=== PATIENT | male | born 1955 | race Caucasian/White ===

== ENCOUNTER → 2024-04-28 08:08 | Outpatient (REF) | payer MEDICARE, OTHER, SELFPAY ==
[2024-04-28 10:02] LABS: % Basophils 0.5 % (0-2); % Eosinophils 2.6 % (0-6); % Immature Granulocytes 0.9 % (0-0.5); % Lymphocytes 18.7 % (20.5-51.1); % Monocytes 11.4 % (1.7-9.3); % Neutrophils 65.9 % (42.2-75.2); Absolute Eosinophils 0.2 10^3/uL (0-0.7); Absolute Immature Granulocytes 0.1 10^3/uL (0-0.05); Absolute Lymphocytes 1.5 10^3/uL (1.2-3.4); Absolute Monocytes 0.9 10^3/uL (0.1-0.6); Absolute Neutrophils 5.1 10^3/uL (1.4-6.5); Hematocrit 41.6 % (39.0-52.0); Mean Corp Hgb Conc. 33.7 g/dL (33.0-37.0); Mean Corpuscular Hgb 29.1 pg (27.0-31.0); Mean Corpuscular Volume 86.5 fL (80.0-94.0); Mean Platelet Volume 9.9 fL (7.4-10.4); Nucleated Red Blood Cells % 0 % (-); Platelet Count 265 10^3/uL (130-400); Red Blood Cell Count 4.81 10^6/uL (4.70-6.10); Red Cell Dist. Width 13.1 % (11.5-14.5); White Blood Cell Count 7.7 10^3/uL (4.8-10.8)
[2024-04-28 12:29] LABS: Blood Urea Nitrogen 25 mg/dl (9-20); Calcium 9.4 mg/dl (8.4-10.2); Carbon Dioxide 30 mmol/L (22-30); Chloride 102 mmol/L (98-107); Glucose 99 mg/dl (70-99); Potassium 4.3 mmol/L (3.5-5.1); Sodium 142 mmol/L (135-145); eGFR > 60.00
== END ==
LOC: RCS 08:08
PROVIDERS: ATTENDING PHYSICIAN Orthopaedic Surgery Hand Surgery; FAMILY PHYSICIAN Family Medicine
DX: Z01.818 Encounter for other preprocedural examination (principal)
CPT/HCPCS: 36415; 80048; 85025; 93005

== ENCOUNTER 2024-07-22 13:43 | Emergency (ER) | payer MEDICARE, OTHER, SELFPAY ==
[2024-07-22 13:51] VITALS: BP 175/106
--- NOTE | 2024-07-22 13:53 | ED.MUSCINJ ---
HPI-Injury
General
Chief Complaint: Musculo-Skeletal Complaint
Source: patient
Exam Limitations: none
Time Seen by Provider: 07/22/24 17:53
History of Present Illness-Injury
Initial Injury comments:
68-year-old [id number] male presents complaining of right shoulder pain after slip and fall. He did not strike his head. He notes significant pain to the shoulder. No other complaints
ED Provider Triage
-
Patient seen by provider in Triage?: Seen in Triage
68-year-old [id number] male with right shoulder pain after slip and fall on ice. No blood thinners. No significant headache.
X-rays right shoulder ordered through triage
Patient seen by medical provider at triage warrants further assessment.
Past History
Past History
ED Past Medical History: Cancer (Prostate), Hypercholesterolemia and Other (Gout)
ED Past Surgical History: None and Urological
Social History
Tobacco: Non-smoker
Alcohol: None
Personal:
Living: with family
Phy Exam
Physical Exam
Physical Exam:
General: Well-appearing male no acute respiratory distress
Musculoskeletal the patient's right shoulder is diffusely tender without obvious deformity. Right elbow is nontender. The right wrist is nontender
Vascular: 2+ radial pulse right wrist
Neurologic: Good sensation right hand alert and oriented otherwise
Injury Course
Orders/Labs/Results
Orders:
Orders
07/22/24 13:44
Shoulder, Right 2 Views [CR Shoulder - Right Min 2 View] Urgent
Comment:
Reason For Exam: fall
*Critical Care Note
Total Time (30-74mins, 75-104mins- exclusive of procedures): Not Applicable
Update Note
Update Note:
X-rays of the right shoulder ordered through triage which I personally reviewed. There is no fracture. There is no dislocation. There seems to be a small subluxation potentially from an intra-articular effusion. I suspect possible soft tissue
injury. Patient in quite a bit of pain. He cannot do NSAIDs. Will prescribe Percocet and advised he follow-up with orthopedics
ED Attending Note
-
Portions of this chart may have been created with voice recognition software.� Occasional wrong word or��sound alike� substitutions may have occurred due to the inherent limitations of voice recognition software.
Discharge Plan
Departure
Patient Disposition: Home (Routine Discharge)
Date of Disposition: 07/22/24
Time of Disposition: 18:06
Patient with high blood pressure during this ER visit?: No
Discharge Problem:
Right shoulder strain
Instructions: Muscle and Bone Pain (DC)
Prescriptions:
New
oxycodone-acetaminophen [Percocet] 5-325 mg tablet
1 tab PO Q6H PRN (Reason: Pain) Qty: 10 0RF
No Action
atorvastatin 20 MG tablet
20 mg PO DAILY
allopurinol 300 MG tablet
300 mg PO DAILY
losartan 50 MG tablet
50 mg PO DAILY
ergocalciferol (vitamin D2) 50,000 UNITS capsule
50,000 units PO WEEKLY
Rx Instructions:
QMondays
hydrochlorothiazide 12.5 MG tablet
25 mg PO DAILY
Referrals:
Landon Magaña MD [Active] -
Bob Tomlinson DO [Family Provider] -
Activity Restrictions/Additional Instructions:
Use sling for support. You may need to sleep in a recliner. Use pain medicine as needed for severe pain. Return here if worse otherwise follow-up with your orthopedic doctor
Interventions
Interventions:
*Risk Screen - Suicide Last Done: 07/22/24 13:51
*General Assessment Last Done: 07/22/24 13:51
*ED COVID-19 Vaccine History Last Done: 07/22/24 13:51
ED-Musculoskeletal Assessment Last Done: 07/22/24 14:53
Discharge Date and Time
Print Language: URUGUAYAN
[2024-07-22] MEDS: PERCOCET 5/325 1 TABLET PO (18:11)
== END 2024-07-22 18:45 | disposition home or self-care (01) ==
LOC: EMR 13:43
PROVIDERS: EMERGENCY PHYSICIAN Emergency Medicine; FAMILY PHYSICIAN Family Medicine
DX: S46.911A Strain of unspecified muscle, fascia and tendon at shoulder and upper arm level, right arm, initial encounter (principal); W00.0XXA Fall on same level due to ice and snow, initial encounter; E78.00 Pure hypercholesterolemia, unspecified; Z85.46 Personal history of malignant neoplasm of prostate
CPT/HCPCS: 99283; 73030

== ENCOUNTER 2024-08-11 06:20 | Day surgery (SDC) | payer MEDICARE, OTHER, SELFPAY ==
[2024-08-11] VITALS (8 sets, daily range): BP systolic 129–152; BP diastolic 75–80; BMI 33.7
[2024-08-11] MEDS: NORMOSOL-R/PLASMALYTE-A 1000 IV (13:11)
[2024-08-11] MEDS: TYLENOL 1000 MG PO (13:11)
[2024-08-11 13:20] LABS: Hematocrit 37.7 % (39.0-52.0); Hemoglobin 13.2 g/dL (13.0-18.0); Mean Corpuscular Hgb 29.8 pg (27.0-31.0); Mean Corpuscular Volume 85.1 fL (80.0-94.0); Mean Platelet Volume 9.4 fL (7.4-10.4); Platelet Count 283 10^3/uL (130-400); Red Blood Cell Count 4.43 10^6/uL (4.70-6.10); Red Cell Dist. Width 12.6 % (11.5-14.5); White Blood Cell Count 5.1 10^3/uL (4.8-10.8)
[2024-08-11 13:31] LABS: ALT (SGPT) 21 U/L (0-50); AST (SGOT) 27 U/L (17-59); Albumin 4.1 g/dl (3.5-5.0); Alkaline Phosphatase 87 U/L (38-126); Blood Urea Nitrogen 17 mg/dl (9-20); Calcium 9.1 mg/dl (8.4-10.2); Carbon Dioxide 26 mmol/L (22-30); Chloride 102 mmol/L (98-107); Estimated Creatinine Clearance 121 ml/min; Glucose 104 mg/dl (70-99); Sodium 137 mmol/L (135-145); Total Bilirubin 0.7 mg/dl (0.2-1.3); Total Protein 6.5 g/dl (6.3-8.2); eGFR > 60.00
== END 2024-08-11 17:15 | disposition home or self-care (01) ==
LOC: SDS 06:20
PROVIDERS: ATTENDING PHYSICIAN Orthopaedic Surgery Hand Surgery
DX: S46.011A Strain of muscle(s) and tendon(s) of the rotator cuff of right shoulder, initial encounter (principal); S46.211A Strain of muscle, fascia and tendon of other parts of biceps, right arm, initial encounter; X58.XXXA Exposure to other specified factors, initial encounter; M75.41 Impingement syndrome of right shoulder
CPT/HCPCS: 29827; 29826; 29823; 80053; 85027; C1713

== ENCOUNTER → 2024-12-28 09:17 | Outpatient (REF) | payer MEDICARE, OTHER, SELFPAY | LOC: RCS 09:17 | PROVIDERS: ATTENDING PHYSICIAN Pain Medicine Interventional Pain Medicine; FAMILY PHYSICIAN Family Medicine | DX: Z01.818 Encounter for other preprocedural examination (principal) | CPT/HCPCS: 93005 ==